=== PATIENT | male | born 1985 | race Two or more races ===

== ENCOUNTER 2019-10-03 12:01 | Outpatient (CLI) | payer OTHER | END 2019-10-03 14:21 | disposition home or self-care (01) | LOC: LAB 12:01 | DX: R10.13 Epigastric pain (principal); R62.59 Other lack of expected normal physiological development in childhood; K52.9 Noninfective gastroenteritis and colitis, unspecified; R30.0 Dysuria; Z12.11 Encounter for screening for malignant neoplasm of colon; R13.19 Other dysphagia ==